=== PATIENT | male | born 1950 | race Caucasian/White ===

== ENCOUNTER 2024-02-23 13:55 | Inpatient (IN) | payer MEDICARE, SELFPAY ==
[2024-02-23 15:13] VITALS: BMI 21.3
[2024-02-23] MEDS ORDERED: Sodium Chloride 0.9% 1,000 ML IV PRN ×3 (15:18)
[2024-02-23] MEDS ORDERED: Dextrose 5 %-0.45 % NaCl 1,000 ML IV PRN (15:18)
[2024-02-23] MEDS ORDERED: D5 1/2 NS w/20 mEq KCL 1,000 ML IV PRN (15:18)
[2024-02-23] MEDS ORDERED: NS 0.9% w/ 20 MEQ KCL 1,000 ML IV PRN (15:18)
[2024-02-23 15:56] LABS: #Basophils 0.07 10x3/uL (0.0-0.2); #Monocytes 1.03 10x3/uL (0.0-1.1); #Neutrophils 19.15 10x3/uL (1.5-8.4); %Basophils 0.3 % (0.0-2.0); %Lymphocytes 6.9 % (18.0-47.0); %Monocytes 4.7 % (0.0-10.0); %Neutrophils 87.4 % (40.0-75.0); Hemoglobin 12.4 g/dL (13.5-17.5); Mean Corpuscular HGB CONC 31.8 g/dL (32.0-36.0); Mean Corpuscular Hemoglobin 31.4 pg (27.0-33.0); Mean Corpuscular Volume 98.7 fL (81.2-95.1); Mean Platelet Volume 11.2 fL (7.4-10.4); Platelet Count 363 10x3/uL (150-450); Red Blood Cell (RBC) Count 3.95 10x6/uL (4.32-5.72); White Blood Cell (WBC) Count 21.9 10x3/uL (3.5-10.5)
[2024-02-23 16:13] LABS: Anion Gap 26 mmol/L (10-20); BUN (Urea Nitrogen) 33 mg/dL (8.4-25.7); Calc. Creatinine Clearance 43 mL/min (70-130); Calcium 9.1 mg/dL (7.8-10.44); Carbon Dioxide 13 mmol/L (23-31); Chloride 105 mmol/L (98-107); Estimated GFR 52; Magnesium 1.6 mg/dL (1.6-2.6); Phosphorus 4.3 mg/dL (2.3-4.7); Potassium 5.1 mmol/L (3.5-5.1); Sodium 139 mmol/L (136-145)
[2024-02-23 16:19] LABS: Glucose 497 mg/dL (83-110)
[2024-02-23] MEDS ORDERED: Electrolyte Replacement Protocol FS PRN (16:30)
[2024-02-23] MEDS: NS 0.9% w/ 20 MEQ KCL 1,000 ML IV PRN (16:45)
[2024-02-23] MEDS: INSULIN REGULAR IN 0.9 % NACL 100 UNITS in Premix 1 BAG IVPB SCH (16:46)
[2024-02-23] MEDS: Insulin Regular, Human 100 UNIT/ML 10 ML VIAL IVP SCH (17:00)
[2024-02-23] MEDS: Magnesium 2 GM/50 ML(in water) 2 GM in Premix 1 BAG IVPB SCH (17:47)
[2024-02-23] MEDS: Morphine 2 MG/ML VIAL SLOW IVP PRN (17:52)
[2024-02-23] MEDS: Electrolyte Replacement Protocol 1 EACH IVPB ONE (18:01)
[2024-02-23 20:11] LABS: ALT (SGPT) 19 U/L (8-55); AST (SGOT) 26 U/L (5-34); Albumin 3.3 g/dL (3.4-4.8); Alkaline Phosphatase 143 U/L (40-110); Anion Gap 29 mmol/L (10-20); BUN (Urea Nitrogen) 34 mg/dL (8.4-25.7); Bilirubin, Total 0.9 mg/dL (0.2-1.2); Calc. Creatinine Clearance 39 mL/min (70-130); Calcium 8.9 mg/dL (7.8-10.44); Carbon Dioxide 11 mmol/L (23-31); Chloride 103 mmol/L (98-107); Estimated GFR 46; Globulin 3.7 g/dL (2.4-3.5); Potassium 5.2 mmol/L (3.5-5.1); Sodium 138 mmol/L (136-145)
[2024-02-23] MEDS: Sodium Chloride 0.9% 1,000 ML IV PRN (20:11)
[2024-02-23 20:16] LABS: Glucose 534 mg/dL (83-110)
[2024-02-23] MEDS ORDERED: Sodium Chloride 0.9% 1,000 ML IV SCH (20:30)
[2024-02-23 21:02] LABS: ALT (SGPT) 18 U/L (8-55); AST (SGOT) 39 U/L (5-34); Albumin 3.1 g/dL (3.4-4.8); Alkaline Phosphatase 137 U/L (40-110); Anion Gap 22 mmol/L (10-20); BUN (Urea Nitrogen) 31 mg/dL (8.4-25.7); Bilirubin, Total 0.5 mg/dL (0.2-1.2); Calc. Creatinine Clearance 45 mL/min (70-130); Calcium 8.4 mg/dL (7.8-10.44); Carbon Dioxide 10 mmol/L (23-31); Chloride 112 mmol/L (98-107); Estimated GFR 54; Globulin 3.8 g/dL (2.4-3.5); Glucose 314 mg/dL (83-110); Potassium 5.4 mmol/L (3.5-5.1); Protein, Total 6.9 g/dL (5.8-8.1); Sodium 139 mmol/L (136-145)
[2024-02-23] MEDS: Lactated Ringer's 1,000 ML IV SCH (21:03)
[2024-02-23] MEDS: Cefepime 1 GM in Sodium Chloride 0.9% 100 ML IVPB SCH (21:06)
[2024-02-23] MEDS: Heparin 5,000 UNITS/ML VIAL SC SCH (21:07)
[2024-02-23] MEDS: Famotidine/PF 20 mg/2ml Vial SLOW IVP SCH (21:08)
[2024-02-23] MEDS: Thiamine HCl 200 MG/2 ML VIAL SLOW IVP SCH (21:12)
[2024-02-23 21:20] LABS: Actual Bicarbonate (HCO3v) 14.9 mEq/L (22-28); Analyzer IN Cardio CS ER; Base Excess -11.2 mEq/L (-2 - +2); Calcium, Ionized (venous) 1.06 mmol/L (1.16-1.32); Chloride (VBG) 110 mmol/L (98-106); Hematocrit-VBG 43 % (42.0-52.0); Hemoglobin (Hb) 14.7 g/dL (12.6-17.4); Potassium (VBG) 4.28 mmol/L (3.70-5.30); Puncture Site Other Site; RapidComm Collect By lab; Sodium 143 mmol/L (133-146); pH (venous) 7.253 (7.32-7.43)
[2024-02-23 21:25] LABS: Hematocrit 39.8 % (38.8-50.0); Hemoglobin 13.2 g/dL (13.5-17.5); Mean Corpuscular HGB CONC 33.2 g/dL (32.0-36.0); Mean Corpuscular Hemoglobin 31.3 pg (27.0-33.0); Mean Corpuscular Volume 94.3 fL (81.2-95.1); Mean Platelet Volume 10.8 fL (7.4-10.4); Platelet Count 403 10x3/uL (150-450); RBC Distribution Width 13.2 % (11.5-14.5); Red Blood Cell (RBC) Count 4.22 10x6/uL (4.32-5.72); White Blood Cell (WBC) Count 25.1 10x3/uL (3.5-10.5)
[2024-02-23 21:27] LABS: MDiff Complete? YES
[2024-02-23 21:37] LABS: Lactic Acid 3.1 mmol/L (0.5-2.2)
[2024-02-23 21:40] LABS: Anion Gap 19 mmol/L (10-20); BUN (Urea Nitrogen) 31 mg/dL (8.4-25.7); Calc. Creatinine Clearance 48 mL/min (70-130); Calcium 9.1 mg/dL (7.8-10.44); Carbon Dioxide 15 mmol/L (23-31); Chloride 110 mmol/L (98-107); Estimated GFR 59; Glucose 290 mg/dL (83-110); Potassium 4.2 mmol/L (3.5-5.1); Sodium 140 mmol/L (136-145)
[2024-02-23 22:13] LABS: Band 3 % (5-11); Lymphocytes 9 % (21-51); Monocytes 2 % (0-10); Neutrophil 84 % (42-75); Reactive Lymphocytes 2 % (0-10)
[2024-02-23 22:16] LABS: Hypochromia SLIGHT = 6-15 cells (100X) (0-5/hpf); Macrocytosis SLIGHT = 6-15 cells (100X) (0-5/hpf)
[2024-02-23 22:17] LABS: Platelet Adequacy Comment Appears Adequate; Platelet Clumps SLIGHT
[2024-02-23] MEDS: Vancomycin 1.5 GRAM/300 ML BAG 1.5 GM in Premix 1 BAG IVPB SCH (23:01)
[2024-02-23] MEDS: Dextrose 5%-Lactated Ringers 1,000 ML IV SCH (23:15)
[2024-02-24] MEDS ORDERED: Lorazepam 2 MG/ML VIAL SLOW IVP SCH ×2 (00:15→14:45)
[2024-02-24] MEDS: Lorazepam 2 MG/ML VIAL ONE (00:33)
[2024-02-24] MEDS: Dextrose 50% Abboject 50 ML SYRINGE SLOW IVP PRN (00:37)
[2024-02-24 00:42] LABS: Alcohol Less than 10.0 mg/dL (Less than 10); Anion Gap 14 mmol/L (10-20); BUN (Urea Nitrogen) 27 mg/dL (8.4-25.7); CK (CPK) 196 U/L (30-200); Calc. Creatinine Clearance 59 mL/min (70-130); Calcium 8.5 mg/dL (7.8-10.44); Carbon Dioxide 19 mmol/L (23-31); Chloride 115 mmol/L (98-107); Estimated GFR 76; Glucose 71 mg/dL (83-110); Potassium 4.1 mmol/L (3.5-5.1); Sodium 144 mmol/L (136-145)
[2024-02-24] MEDS ORDERED: INSULIN REGULAR IN 0.9 % NACL 100 UNITS in Premix 1 BAG IVPB SCH (02:00)
[2024-02-24 03:47] LABS: Lactic Acid 1.5 mmol/L (0.5-2.2)
[2024-02-24 03:51] LABS: Magnesium 1.9 mg/dL (1.6-2.6)
[2024-02-24 03:54] LABS: #Basophils 0.08 10x3/uL (0.0-0.2); #Eosinphils 0.09 10x3/uL (0.0-0.5); #Monocytes 1.46 10x3/uL (0.0-1.1); %Basophils 0.4 % (0.0-2.0); %Eosinophils 0.4 % (0.0-6.0); %Lymphocytes 9.8 % (18.0-47.0); %Monocytes 6.5 % (0.0-10.0); %Neutrophils 81.9 % (40.0-75.0); Hematocrit 35.7 % (38.8-50.0); Hemoglobin 11.7 g/dL (13.5-17.5); Mean Corpuscular HGB CONC 32.8 g/dL (32.0-36.0); Mean Corpuscular Hemoglobin 30.7 pg (27.0-33.0); Mean Corpuscular Volume 93.7 fL (81.2-95.1); Mean Platelet Volume 10.3 fL (7.4-10.4); Platelet Count 418 10x3/uL (150-450); RBC Distribution Width 13.3 % (11.5-14.5); Red Blood Cell (RBC) Count 3.81 10x6/uL (4.32-5.72); White Blood Cell (WBC) Count 22.4 10x3/uL (3.5-10.5)
[2024-02-24 04:17] LABS: ALT (SGPT) 17 U/L (8-55); AST (SGOT) 25 U/L (5-34); Albumin 3.1 g/dL (3.4-4.8); Alkaline Phosphatase 127 U/L (40-110); Anion Gap 12 mmol/L (10-20); BUN (Urea Nitrogen) 25 mg/dL (8.4-25.7); Bilirubin, Total 0.5 mg/dL (0.2-1.2); Calc. Creatinine Clearance 55 mL/min (70-130); Calcium 8.7 mg/dL (7.8-10.44); Carbon Dioxide 21 mmol/L (23-31); Chloride 112 mmol/L (98-107); Estimated GFR 70; Globulin 3.6 g/dL (2.4-3.5); Glucose 120 mg/dL (83-110); Potassium 3.8 mmol/L (3.5-5.1); Protein, Total 6.7 g/dL (5.8-8.1); Sodium 141 mmol/L (136-145)
[2024-02-24] MEDS ORDERED: Glucagon 1 MG/ML KIT IM PRN (05:15)
[2024-02-24] MEDS ORDERED: Dextrose 5% in Water 1,000 ML IV PRN (05:15)
[2024-02-24] MEDS ORDERED: Dextrose 50% Abboject 50 ML SYRINGE SLOW IVP PRN (05:15)
[2024-02-24] MEDS: Lantus 1000 UNITS/10 ML VIAL SC SCH (05:37)
[2024-02-24] MEDS: Potassium Chloride 20 MEQ in Premix 1 BAG IVPB SCH (05:39)
[2024-02-24] MEDS: Dextrose 5%-Lactated Ringers 1,000 ML IV SCH (07:57)
[2024-02-24] MEDS: Magnesium 2 GM/50 ML(in water) 2 GM in Premix 1 BAG IVPB SCH (08:13)
[2024-02-24 10:39] VITALS: BMI 21.9
[2024-02-24] MEDS: HumaLOG 300 UNITS/3 ML VIAL SC PRN ×2 (11:09→15:34)
[2024-02-24] MEDS: Ondansetron ODT 4 MG TAB PO PRN (12:15)
[2024-02-24] MEDS: Sodium Chloride 0.9% 1,000 ML IV SCH (12:30)
[2024-02-24] MEDS ORDERED: Sucralfate 1 GM TAB PO PRN (13:27)
[2024-02-24] MEDS ORDERED: Lorazepam 2 MG/ML VIAL SLOW IVP PRN (14:35)
[2024-02-24] MEDS ORDERED: diphenhydrAMINE 50 MG/ML VIAL IVP PRN (14:41)
[2024-02-24 19:59] LABS: Anion Gap 14 mmol/L (10-20); BUN (Urea Nitrogen) 13 mg/dL (8.4-25.7); Calc. Creatinine Clearance 70 mL/min (70-130); Calcium 8.4 mg/dL (7.8-10.44); Carbon Dioxide 22 mmol/L (23-31); Chloride 105 mmol/L (98-107); Estimated GFR 90; Glucose 226 mg/dL (83-110); Potassium 3.7 mmol/L (3.5-5.1); Sodium 137 mmol/L (136-145)
[2024-02-24] MEDS: Vancomycin 1 GM in Sodium Chloride 0.9% 250 ML 250 ML IVPB SCH (22:28)
[2024-02-24] MEDS: Enoxaparin 40 MG (0.4 mL) SYRINGE SC SCH (22:33)
[2024-02-24] MEDS: Pantoprazole DR 40 MG TAB PO SCH (22:35)
[2024-02-25 04:47] LABS: #Basophils 0.08 10x3/uL (0.0-0.2); #Monocytes 0.93 10x3/uL (0.0-1.1); #Neutrophils 10.35 10x3/uL (1.5-8.4); %Basophils 0.6 % (0.0-2.0); %Eosinophils 1.4 % (0.0-6.0); %Lymphocytes 18.1 % (18.0-47.0); %Monocytes 6.5 % (0.0-10.0); %Neutrophils 72.8 % (40.0-75.0); Hemoglobin 11.2 g/dL (13.5-17.5); Mean Corpuscular HGB CONC 33.9 g/dL (32.0-36.0); Mean Corpuscular Volume 91.4 fL (81.2-95.1); Mean Platelet Volume 10.2 fL (7.4-10.4); Platelet Count 342 10x3/uL (150-450); RBC Distribution Width 12.9 % (11.5-14.5); Red Blood Cell (RBC) Count 3.61 10x6/uL (4.32-5.72); White Blood Cell (WBC) Count 14.2 10x3/uL (3.5-10.5)
[2024-02-25 04:59] LABS: Magnesium 1.5 mg/dL (1.6-2.6); Vancomycin, Random 16.8 ug/mL (See Comment)
[2024-02-25] MEDS: Magnesium 2 GM/50 ML(in water) 2 GM in Premix 1 BAG IVPB SCH (06:31)
[2024-02-25] MEDS: Acetaminophen 325 MG TAB PO PRN (06:44)
[2024-02-25] MEDS ORDERED: Lantus 1000 UNITS/10 ML VIAL SC SCH (09:00)
[2024-02-25] MEDS: FLUoxetine HCl 10 MG CAP PO SCH (09:14)
[2024-02-25] MEDS: Vancomycin HCl 750 MG in Sodium Chloride 0.9% 250 ML 250 ML IVPB SCH (09:15)
[2024-02-25] MEDS: Lantus 1000 UNITS/10 ML VIAL SC SCH (09:16)
[2024-02-25] MEDS: Dicyclomine 10 MG CAP PO SCH (10:51)
[2024-02-25 16:15] VITALS: BP 169/99; TEMP 98.2
[2024-02-25] MEDS ORDERED: Famotidine/PF 20 mg/2ml Vial SLOW IVP SCH (21:00)
== END 2024-02-25 14:25 | disposition home or self-care (01) | DRG 637 ==
LOC: CSHTELE 14:54
PROVIDERS: ADMIT Internal Medicine; ATTEND Family Medicine
DX: E11.10 Type 2 diabetes mellitus with ketoacidosis without coma (principal); G93.41 Metabolic encephalopathy; N17.9 Acute kidney failure, unspecified; R65.10 Systemic inflammatory response syndrome (SIRS) of non-infectious origin without acute organ dysfunction; F15.129 Other stimulant abuse with intoxication, unspecified; I25.10 Atherosclerotic heart disease of native coronary artery without angina pectoris; F17.220 Nicotine dependence, chewing tobacco, uncomplicated; D72.829 Elevated white blood cell count, unspecified; I48.91 Unspecified atrial fibrillation; I10 Essential (primary) hypertension; Z88.2 Allergy status to sulfonamides; Z79.899 Other long term (current) drug therapy; Z88.8 Allergy status to other drugs, medicaments and biological substances; Z90.49 Acquired absence of other specified parts of digestive tract
CPT/HCPCS: 36415; 36416; 71045; 80202; 80307; 82010; 82550; 82805; 83605; 83735; 84100; 84145; 85025; 87040; 87077; 87149; J0692; J1644; J1650; J1815; J2272; J3370; J3411; J3475; J3480; J3490; J7050; J7120; J7999; Q0162; S0028